=== PATIENT | female | born 1975 | race African-American/Black ===

== ENCOUNTER 2016-12-13 15:23 | Emergency (ER) | payer BC ==
[~2016-12-13] VITALS: Ht 177.8 cm; Wt 122.9 kg
[~2016-12-13 15:23] MED LIST: BACTRIM,SEPT1 TABLET PO; FLEXERIL10 MG PO; MOTRIN600 MG PO
[2016-12-13 16:15] LABS: HEMATOCRIT 35.6 % (36.0-46.0); MCH 26.2 PG (29.0-34.0); MCHC 31.5 G/DL (30.0-36.0); MCV 83.2 FL (83-99); MEAN PLAT.VOLUME 9.5 uM^3 (9.5-12.4); PLATELET COUNT 296 K/uL (156-360); RBC DIS.WIDTH-CV 13.4 % (11.8-14.6); RBC DIS.WIDTH-SD 40.9 % (39-53); RED BLOOD COUNT 4.28 M/uL (3.80-5.20); WHITE BLOOD COUNT 3.7 K/uL (4.1-10.2)
[2016-12-13 16:27] LABS: CHLORIDE 104 mEq/L (99-109); POTASSIUM 3.4 mEq/L (3.7-5.4); SODIUM 139 mEq/L (136-147)
[2016-12-13 16:29] LABS: GLUCOSE 94 mg/dL (70-99)
[2016-12-13 16:30] LABS: ANION GAP 7 MEQ/L (2-14)
[2016-12-13 16:32] LABS: GFR ESTIMATE (CALCULATED) > 59 mL/min/
[2016-12-13 16:33] LABS: UREA NITROGEN (BUN) 8 mg/dL (9-23)
[2016-12-13] MEDS ORDERED: DULOXETINE HCL60 MG PO (16:33)
[2016-12-13 16:43] LABS: QUANTITATIVE HCG < 4.0 MIU/ML
[2016-12-13 17:05] LABS: TOTAL BILIRUBIN 0.3 mg/dL (0.0-1.0)
[2016-12-13 17:06] LABS: ALKALINE PHOSPHATASE 74 IU/L (3-129)
[2016-12-13 17:09] LABS: DIRECT BILIRUBIN 0.1 mg/dL (0.0-0.3)
[2016-12-13 17:10] LABS: LIPASE 21 U/L (1.0-51.0)
[2016-12-13 17:20] LABS: PROTHROMBIN TIME 10.5 (9.2-11.2); PTT 27.7 (25-32)
[2016-12-13 20:36] VITALS: BP 141/95
== END 2016-12-13 21:25 | disposition home or self-care (01) ==
LOC: EME 15:23
PROVIDERS: Emergency Medicine
DX: R10.32 Left lower quadrant pain (principal); K92.1 Melena; Z87.891 Personal history of nicotine dependence
CPT/HCPCS: 74177; 80048; 80076; 83690; 84702; 85027; 85610; 85730; 86900; 86901; 99281; 99285; J7030

== ENCOUNTER 2017-10-30 16:27 | Emergency (ER) | payer BC ==
[~2017-10-30] VITALS: Ht 177.8 cm; Wt 115.8 kg
[~2017-10-30 16:27] MED LIST changes: +DULOXETINE HCL60 MG PO
[2017-10-30 17:32] LABS: HEMOGLOBIN 11.5 G/DL (11.9-15.5); MCH 26.8 PG (29.0-34.0); MCHC 31.9 G/DL (30.0-36.0); MCV 83.9 FL (83-99); PLATELET COUNT 263 K/uL (156-360); RBC DIS.WIDTH-CV 14.4 % (11.8-14.6); RED BLOOD COUNT 4.29 M/uL (3.80-5.20)
[2017-10-30 17:42] LABS: CHLORIDE 103 mEq/L (99-109); SODIUM 142 mEq/L (136-147)
[2017-10-30 17:44] LABS: GLUCOSE 94 mg/dL (70-99)
[2017-10-30 17:48] LABS: CREATININE 0.8 mg/dL (0.6-1.3); GFR ESTIMATE (CALCULATED) > 59 mL/min/; UREA NITROGEN (BUN) 10 mg/dL (9-23)
[2017-10-30 17:57] LABS: QUANTITATIVE HCG < 4.0 MIU/ML
[2017-10-30] MEDS ORDERED: CARBAMAZEPINE100 MG PO (20:13)
[2017-10-30 20:22] VITALS: BP 148/89
== END 2017-10-30 20:23 | disposition home or self-care (01) ==
LOC: EME 16:27
PROVIDERS: Physician Assistant Medical
DX: G50.0 Trigeminal neuralgia (principal); Z90.49 Acquired absence of other specified parts of digestive tract; Z85.038 Personal history of other malignant neoplasm of large intestine
CPT/HCPCS: 70450; 80048; 84702; 85027; 99281; 99284